=== PATIENT | female | born 1980 | race Caucasian/White ===

== ENCOUNTER 2018-05-13 17:41 | Emergency (ER) | payer OTHER ==
[~2018-05-13] VITALS: Ht 160 cm; Wt 81.6 kg
[2018-05-13 17:42] VITALS: Ht 160 cm; Wt 81.6 kg
[2018-05-13 18:53] LABS: BASOPHIL % 0.3 % (0-2); PLATELET COUNT 261 x10^3mcL (130-400)
[2018-05-13 18:56] LABS: RED CELL DISTRIBUTION WIDTH 15.6 % (11.5-14.5)
[2018-05-13 19:02] LABS: CALCIUM 8.5 mg/dL (8.5-10.1); CARBON DIOXIDE 20.9 mmol/L (21-32); CHLORIDE SERUM 106 mmol/L (98-107); CREATININE SERUM 0.7 mg/dL (0.6-1.0); GFR1 > 60 mL/min; GLUCOSE SERUM 107 mg/dL (74-106); POTASSIUM SERUM 3.6 mmol/L (3.5-5.1); SODIUM SERUM 136 mmol/L (136-145)
[2018-05-13 19:07] LABS: ALBUMIN 3.6 g/dL (3.4-5.0); ALKALINE PHOSPHATASE 42 U/L (46-116); ALT/SGPT 16 U/L (14-59); AST/SGOT 14 U/L (15-37); BILIRUBIN TOTAL 0.2 mg/dL (0.20-1.00)
[2018-05-13 19:16] LABS: FREE T4 0.8 ng/dL (0.76-1.46); FREE THYROXINE INDEX 1.9 ug/dL (1.4-4.5); T4(THYROXINE) 5.6 ug/dL (4.7-13.3)
[2018-05-13 19:39] LABS: T3 TOTAL 0.96 ng/mL
[2018-05-13 20:21] VITALS: BP 91/62
== END 2018-05-13 20:21 | disposition home or self-care (01) ==
LOC: ED 17:41
PROVIDERS: Emergency Medicine
DX: R51 Headache (principal); N39.0 Urinary tract infection, site not specified
CPT/HCPCS: 84439; J1885; J2765